=== PATIENT | male | born 1960 | race Caucasian/White ===

== ENCOUNTER 2023-09-08 17:39 | Emergency (ER) | payer MEDICARE, OTHER, SELFPAY ==
[2023-09-08 17:43] VITALS: BP 153/90
--- NOTE | 2023-09-08 17:47 | ED.GENMED ---
History of Present Illness
<Ashlie Deal PA-C - Last Filed: 09/08/23 20:03>
General
Chief Complaint: Fall
Source: patient
Time Seen by Provider: 09/08/23 17:47
Travel History
Have you had any contact with someone who has COVID-19?: No
Do you have any symptoms of coronavirus? Fever > 100 degrees, chills, cough, shortness of breath, sore throat, loss of taste or smell, muscle aches, or headache?: No
History of Present Illness
History of Present Illness:
63-year-old male with a past medical history of hypertension, hypothyroidism presenting emergency department today with left-sided back pain following a fall today. He states that this fall incurred around 3 hours ago. Patient was walking outside
in the wet grass when he slipped and fell back words onto his back. Patient states that he fell onto his left side. He denies hitting his head. He did not take any blood thinners. He states that the pain is worse with any movement, breathing,
coughing. Patient has never had an injury like this before. Patient denies any injury to his shoulder. Patient denies any abdominal tenderness. Patient has any headache, nausea or vomiting. Patient states he had a discectomy in his back 20+
years ago, but denies any recent back surgeries or spinal injections.
Past History
<Ashlie Deal PA-C - Last Filed: 09/08/23 20:03>
Past History
ED Past Medical History: HTN, NIDDM, Hypothyroidism and Other (neuropathy)
Social History
Tobacco: Non-smoker
Alcohol: None
Living: with family
Employment: Employed
Family History
Family History: Other (reviewed and noncontributory)
Review of Systems
<Ashlie Deal PA-C - Last Filed: 09/08/23 20:03>
Review of Systems
All Other Systems: ROS reviewed and negative except as documented in HPI and ROS
Phy Exam
<Ashlie Deal PA-C - Last Filed: 09/08/23 20:03>
Physical Exam
Physical Exam:
General: Patient is well-appearing and in no acute distress
Skin: Warm and dry, no rashes or lesions, no areas of ecchymosis
Head: normocephalic, atraumatic
Cardiac: Regular rate, no tenderness palpation of the anterior chest wall, significant tenderness palpation of the lower left posterior chest wall with palpable popping
Pulm: Normal respiratory effort, no wheezes, rales, rhonchi
Abdomen: No abdominal tenderness, no organomegaly, no ecchymosis
Musculoskeletal: Patient with significant tenderness to palpation of the left lower posterior chest wall, no midline spinal tenderness, no c-spine tenderness. Patient seen spontaneously moving C-spine. Full range of motion of b/l upper extremities.
Neuro: CN II-XII intact.
Course
<Ashlie Deal PA-C - Last Filed: 09/08/23 20:03>
Orders/Labs/Results
Orders:
Orders
09/08/23 17:57
Oxycodone [Roxicodone] 5 mg PO NOW STA
CR Ribs-left 3 Vw W/pa Chest Urgent
Reason For Exam: left sided posterior chest pain following trauma
09/08/23 18:04
Oxycodone [Roxicodone] 5 mg PO NOW STA
Vital Signs
Initial and Last Documented VS:
Initial Vital Signs
Temp Pulse Resp BP Pulse Ox
97.9 F 57 17 153/90 99
09/08/23 17:43 09/08/23 17:43 09/08/23 17:43 09/08/23 17:43 09/08/23 17:43
Last Documented Vital Signs
Temp Pulse Resp BP Pulse Ox
97.9 F 57 17 153/90 99
09/08/23 17:43 09/08/23 17:43 09/08/23 17:43 09/08/23 17:43 09/08/23 17:43
<Jules Srivastava DO - Last Filed: 09/08/23 18:03>
Orders/Labs/Results
Orders:
Orders
09/08/23 17:57
Oxycodone [Roxicodone] 5 mg PO NOW STA
CR Ribs-left 3 Vw W/pa Chest Urgent
Reason For Exam: left sided posterior chest pain following trauma
09/08/23 18:04
Oxycodone [Roxicodone] 5 mg PO NOW STA
Vital Signs
Initial and Last Documented VS:
Initial Vital Signs
Temp Pulse Resp BP Pulse Ox
97.9 F 57 17 153/90 99
09/08/23 17:43 09/08/23 17:43 09/08/23 17:43 09/08/23 17:43 09/08/23 17:43
Last Documented Vital Signs
Temp Pulse Resp BP Pulse Ox
97.9 F 57 17 153/90 99
09/08/23 17:43 09/08/23 17:43 09/08/23 17:43 09/08/23 17:43 09/08/23 17:43
<Ashlie Deal PA-C - Last Filed: 09/08/23 20:03>
MDM/Problems Addressed
Differential Diagnosis Includes:
ddx include rib fracture, pulmonary contusion, paraspinal musculature sprain/tear
MDM/Problems Addressed:
left sided back pain
Chronic conditions affecting care: HTN and Other (hypothyroidism)
Acute Exacerbation and/or Progression of Chronic Illness: HTN
<Ashlie Deal PA-C - Last Filed: 09/08/23 20:03>
*Pulse Oximetry
Patient hypoxic: no
*Critical Care Note
Total Time (30-74mins, 75-104mins- exclusive of procedures): Not Applicable
Data Reviewed
Review of Other/Old Records Reveals: Records (Reviewed ER physician documentation from 02/06/2021) and Operative Reports (Reviewed operative report from 09/08/2021)
Source: patient
<Ashlie Deal PA-C - Last Filed: 09/08/23 20:03>
Patient Management
Escalation/DeEscalation of care consider admission/obs:
63-year-old male with left lower external chest wall pain following a fall. Patient did not hit his head during the fall. Patient is not on any blood thinners. Patient has no abdominal tenderness. His x-ray shows some mild atelectasis but no
evidence of rib fracture. No further imaging is indicated at this time. Patient states that oxycodone significantly helped his pain. Will discharge patient home with instruction to use ibuprofen as needed for pain control, ice to area, and rest
as needed. Patient will follow-up with his primary care provider should his symptoms resolve.
ED Attending Note
<DIMA Steawrt Last Filed: 09/08/23 20:03>
-
Portions of this chart may have been created with voice recognition software.� Occasional wrong word or��sound alike� substitutions may have occurred due to the inherent limitations of voice recognition software.
<Jules Srivastava DO - Last Filed: 09/08/23 18:03>
ED Attending Note
Patient seen and examined by attending physician: Yes
I performed the substantive portion of visit, reviewed & personally made and approve the management plan that is documented in note by myself or LIANA.: Yes
ED Attending Note:
I agree with anders note
Patient with a slip and fall around 1:00 complaining of left flank pain. Some discomfort with deep breath. No significant shortness of breath.
Breath sounds present bilaterally
No abdominal tenderness to palpation
Rib series pending. Analgesia.
Discharge Plan
Departure
Patient Disposition: Home (Routine Discharge)
Date of Disposition: 09/08/23
Time of Disposition: 19:34
Patient with high blood pressure during this ER visit?: Yes
Condition: Good
Discharge Problem:
Contusion of rib
Instructions: Preventing falls in adults, Bruised Rib (DC), BLOOD PRESSURE
Prescriptions:
No Action
levothyroxine 75 MCG tablet
75 mcg PO DAILY
amlodipine 5 MG tablet
5 mg PO DAILY Qty: 60 0RF
bisoprolol fumarate 10 MG tablet
10 mg PO DAILY
Doxycycline Hyclate 100 MG Capsule
100 mg PO BID Qty: 10 0RF
Referrals:
Carl Chandler CRNP [Family Provider] -
Activity Restrictions/Additional Instructions:
Your x-ray did not show any rib fracture.
Please follow up with your primary care provider.
You can use ibuprofen as needed for pain control. Please ice the area and rest.
Interventions
Interventions:
*Risk Screen - Suicide Last Done: 09/08/23 18:09
*General Assessment Last Done: 09/08/23 18:09
*Neglect/Abuse Screening Last Done: 09/08/23 18:09
*ED COVID-19 Vaccine History Last Done: 09/08/23 18:09
ED-Musculoskeletal Assessment Last Done: 09/08/23 18:11
ED- Neurological Assessment Last Done: 09/08/23 18:11
[2023-09-08] MEDS: ROXICODONE 5 MG PO (18:08)
== END 2023-09-08 20:05 | disposition home or self-care (01) ==
LOC: EMR 17:39
PROVIDERS: EMERGENCY PHYSICIAN Emergency Medicine; FAMILY PHYSICIAN Registered Nurse
DX: S20.219A Contusion of unspecified front wall of thorax, initial encounter (principal); W01.0XXA Fall on same level from slipping, tripping and stumbling without subsequent striking against object, initial encounter; I10 Essential (primary) hypertension; E03.9 Hypothyroidism, unspecified
CPT/HCPCS: 99283; 71101

== ENCOUNTER → 2024-04-21 07:04 | Outpatient (REF) | payer MEDICARE, OTHER, SELFPAY | LOC: HWRCS 07:04 | PROVIDERS: ATTENDING PHYSICIAN Registered Nurse | DX: E03.9 Hypothyroidism, unspecified (principal); E78.2 Mixed hyperlipidemia; Z00.00 Encounter for general adult medical examination without abnormal findings; R73.01 Impaired fasting glucose; I10 Essential (primary) hypertension; N52.1 Erectile dysfunction due to diseases classified elsewhere; N40.1 Benign prostatic hyperplasia with lower urinary tract symptoms; R94.31 Abnormal electrocardiogram [ECG] [EKG]; Z23 Encounter for immunization | CPT/HCPCS: 93306 ==

== ENCOUNTER → 2024-04-24 09:37 | Outpatient (REF) | payer MEDICARE, OTHER, SELFPAY | LOC: RCS 09:37 | PROVIDERS: ATTENDING PHYSICIAN Registered Nurse | DX: E78.2 Mixed hyperlipidemia (principal); I10 Essential (primary) hypertension; N52.1 Erectile dysfunction due to diseases classified elsewhere; N40.1 Benign prostatic hyperplasia with lower urinary tract symptoms; R94.31 Abnormal electrocardiogram [ECG] [EKG] | CPT/HCPCS: 93017 ==